=== PATIENT | female | born 1995 | race Caucasian/White ===

== ENCOUNTER → 2016-12-02 | Day surgery (SDC) | payer BC ==
[2016-11-30 11:05] VITALS: Ht 160 cm; Wt 77.3 kg
--- NOTE | 2016-12-01 23:04 | HISTORY & PHYSICAL EXAMINATION ---
DATE OF ADMISSION: 12/02/2016 DIAGNOSIS: Recurrent epistaxis. HISTORY OF PRESENT ILLNESS: This 21-year-old presented with recurrent episodes of epistaxis from the left nostril. PAST MEDICAL HISTORY: Medical problems: None. PREVIOUS SURGERIES: Tonsillectomy. MEDICATIONS: Topamax and Effexor. ALLERGIES: BIAXIN. FAMILY HISTORY: Negative. SOCIAL HISTORY: Negative. REVIEW OF SYSTEMS: Otherwise negative. PHYSICAL EXAMINATION: GENERAL: WNWD female, in no acute distress. HEAD: Normocephalic. EYES: Normal. EARS: Tympanic membranes are intact. NOSE: Nasal passages; swollen turbinates. NECK: Supple. HEART: RRR. LUNGS: Clear. ABDOMEN: Soft. GENITOURINARY: Deferred. EXTREMITIES: Full range of motion. IMPRESSION: Recurrent epistaxis, more so from the left nostril. PLAN: For endoscopic cautery.
[~2016-12-02] VITALS: Ht 160 cm; Wt 77.3 kg
[~2016-12-02] MED LIST: ALBINS/ INH; BACITRACIN OINT 15 GM TUBE ONE; EpINEphrine INJ 1MG/ML AMP 1 MG/ML AMP ONE; GELATIN SPONGE 12-7MM ONE; GELATIN SPONGE SZ 100 ONE; LIDO 2%/EPINEPHRINE 1:100000 20 ML VIAL INFIL ONE; SODIUM CHLORIDE 0.9% 1000ML 1,000 ML IV SCH; TETRACAINE 4% TOPICAL SOLUTION TOP SCH; TOPI100T20 PO; VENL150C56 PO; VNTHFA/IN INH; [UNRECOGNIZED DRUG - CODE]
--- NOTE | 2016-12-02 07:03 | History & Physical Bridge Note ---
H&P Re-Evaluation Bridge Note: I have examined the patient, reviewed the History & Physical and in the interval since the performance of the History & Physical I have noted the following changes of clinical significance: No changes noted
--- NOTE | 2016-12-02 09:00 | Discharge Instructions-SurgCtr ---
Discharge Instructions Date of Service Dec 02, 2016. Visit Reason for Visit: Epistaxis - Not Actively Bleeding Discharge Discharge Diagnosis / Problem: same Discharge Goals Goal(s): Therapeutic intervention Activity Recommendations Activity Limitations: resume your previous activity Anesthesia . Post Anesthesia Instructions: If you have had General Anesthesia or IV Sedation: * Do not drive today. * Resume driving when surgeon permits. * Do not make important decisions or sign legal documents today. * Call surgeon for: 1. Temperature elevations greater than 101 degrees F. 2. Uncontrollable pain. 3. Excessive bleeding. 4. Persistent nausea and vomiting. 5. Medication intolerance (nausea, vomiting or rash). * For nausea and vomiting use only clear liquids such as: tea, soda, bouillon until nausea subsides, then gradually increase diet as tolerated. * If you have any concerns or questions, call your surgeon's office. If physician is unavailable and it is an emergency, call 911 or go to the nearest emergency room. . Instructions / Follow-Up Instructions / Follow-Up ACTIVITY RECOMMENDATIONS: * Being up and around is good, but no strenuous activity, heavy lifting or physical exertion for one week. OVER THE COUNTER MEDICATIONS: * You may use Tylenol * Avoid aspirin or aspirin containing products, e.g. as they may increase bleeding. SPECIAL CARE INSTRUCTIONS: * Expect to have bloody drainage from your nose and/or down your throat for one to three days. Change drip pad as needed. * Begin irrigating your nose with saline solution today, at least six to ten times per day and sniff back to help remove old clots or crust. * You may experience nasal and facial congestion, pain and pressure, this is normal. * Please call with any significant and/or progressive pain, redness, swelling around the eyes, visual changes, fever of 101.5 degrees F, active bleeding or any problems or concerns. * If active bleeding occurs, spray the nose three times at one minute intervals with Afrin spray and call or cell phone: . If unable to reach the doctor, go to the nearest Emergency Department. Special Diet: * Avoid extremely hot fluids. FOLLOW UP VISIT: Follow-up Visit with Dr. Smith If not already scheduled, please call to schedule. Diet Recommendations Home Diet: no limitations Pending Studies Studies pending at discharge: no Medical Emergencies . Who to Call and When: Medical Emergencies: If at any time you feel your situation is an emergency, please call 911 immediately. . Non-Emergent Contact Non-Emergency issues call your: Primary Care Provider . . "Provider Documentation" section prepared by Paola Smith. . [place] Drug Monitoring Program Search Results: no issues identified
[2016-12-02 09:25] VITALS: TEMP 36.5
[2016-12-02 09:51] VITALS: BP 131/95; PULSE 98; O2SAT 99
--- NOTE | 2016-12-02 11:14 | OPERATIVE REPORT ---
DATE OF OPERATION: 12/02/2016 PREOPERATIVE DIAGNOSIS: Recurrent epistaxis. POSTOPERATIVE DIAGNOSIS: Same. PROCEDURE: Endoscopic cautery and anterior nasal packing. SURGEON: Dr. Smith. ANESTHESIA: Strict local. COMPLICATIONS: None. BLOOD LOSS: 2 mL. HISTORY OF PRESENT ILLNESS: A 21-year-old with recurrent episodes of epistaxis failed silver nitrate cautery in the office. PROCEDURE: The patient brought to the operating room and placed in supine position. She was awake. Topical anesthesia was obtained using cottonoids with 4 mL of 4% tetracaine mixed with 1 mL of epinephrine. Injection 2% Xylocaine with 1:100,000 strength epinephrine was also used. Endoscopic cautery was performed using the small suction cautery cauterizing the 3 branches of a rather large vessel on the left side of septum. There was 1 smaller vessel on the right side which was also cauterized using the suction cautery. Anterior nasal packing of Gelfoam was placed. The patient tolerated procedure well and was taken to recovery area in satisfactory condition. I attest to the content of the Intraoperative Record and any orders documented therein. Any exceptio ns are noted below.
== END | disposition home or self-care (01) ==
LOC: X.SURG 07:29
PROVIDERS: ATTEND Otolaryngology
DX: R04.0 Epistaxis (principal)

== ENCOUNTER → 2017-04-25 | Outpatient (CLI) | payer BC ==
[~2017-04-25] MED LIST changes: -BACITRACIN OINT 15 GM TUBE ONE; -EpINEphrine INJ 1MG/ML AMP 1 MG/ML AMP ONE; -GELATIN SPONGE 12-7MM ONE; -GELATIN SPONGE SZ 100 ONE; -LIDO 2%/EPINEPHRINE 1:100000 20 ML VIAL INFIL ONE; -SODIUM CHLORIDE 0.9% 1000ML 1,000 ML IV SCH; -TETRACAINE 4% TOPICAL SOLUTION TOP SCH
--- NOTE | 2017-04-25 10:39 | DIAGNOSTIC IMAGING REPORT ---
PELVIC ULTRASOUND CLINICAL HISTORY: URGE INCONTINENCE COMPARISON STUDY: Pelvic ultrasound July 01, 2016. TECHNIQUE: Transabdominal and transvaginal sonography of the pelvis was performed. FINDINGS: The uterus is sonographically normal, measuring 6.3 x 3.5 x 3.1 cm. Endometrium measures 5 mm in thickness. The right ovary measures 3 x 2.5 x 1.9 cm and the left measures 3.4 x 1.7 x 2.8 cm. Color flow is identified within each ovary. There was no free fluid. IMPRESSION: Normal pelvic ultrasound. Electronically signed by: Bentley Mendez M.D. 04/25/2017 10:38 AM Dictated Date/Time: 04/25/2017 10:37 AM
== END | disposition home or self-care (01) ==
LOC: C.ULTRBC 10:06
PROVIDERS: ATTEND Family Medicine
DX: N39.41 Urge incontinence (principal)

== ENCOUNTER 2017-11-19 06:44 | Emergency (ER) | payer BC, OTHER ==
[~2017-11-19] VITALS: Ht 160 cm; Wt 79.1 kg
[2017-11-19 06:47] VITALS: TEMP 36.4; Ht 160 cm; Wt 79.1 kg
[2017-11-19] MEDS ORDERED: SODIUM CHLORIDE 0.9% 1000ML 2,000 ML IV STA (06:57)
[2017-11-19] MEDS ORDERED: ONDANSETRON INJ 2 MG/ML 2 ML VIAL IV STA ×2 (06:57→08:14)
--- NOTE | 2017-11-19 07:40 | EMERGENCY ROOM VISIT NOTE ---
History Report prepared by Wendy: Hanna Dale Under the Supervision of: Dr. Lorenzo San M.D. First contact with patient: 06:55 Chief Complaint: VOMITING Stated Complaint: VOMITING History of Present Illness The patient is a 22 year old female who presents to the Emergency Room with complaints of persistent vomiting since 0200 this morning. She states she worked last night, then ordered [place] food from [employer] for dinner, and has been "violently vomiting" since 199. She complains of "crampy" abdominal pain. She notes she feels "really hot" currently in the ED. Pt denies LOC, headache, fevers, chills, diaphoresis, visual changes, neck pain, chest pain, breathing difficulties, back pain, melena, hematochezia, urinary symptoms , numbness, weakness, lymphadenopathy, rash, or other complaints. Source of History: patient Onset: 199 this morning Position: abdomen Timing: other (persistent) Modifying Factors (Worsening): eating ([place] food last night) Associated Symptoms: + abdominal pain (crampy) Review of Systems See HPI for pertinent positives and negatives. A total of ten systems were reviewed and were otherwise negative. Past Medical & Surgical Medical Problems: (1) Anxiety (2) ureteral surgery as Surgical Problems: (1) H/O wisdom tooth extraction (2) S/P tonsillectomy Social History Smoking Status: Never Smoker Alcohol Use: none Drug Use: none Marital Status: single Housing Status: lives with family Occupation Status: [employer] student Current/Historical Medications Scheduled Topiramate (Topamax), 100 MG PO HS Venlafaxine Hcl (Effexor Extended Rel), 300 MG PO DAILY AT LUNCH Scheduled PRN Albuterol Hfa (Ventolin Hfa), 2-4 PUFFS INH Q6H PRN for Shortness of Breath Albuterol Sulf (Proventil 0.083% 2.5MG/3ML), 2.5 MG INH QID PRN for Shortness of Breath Miscellaneous Medications Medroxyprogesterone Acetate (C (Depo-Subq Provera 104) Allergies Coded Allergies: Cat Dander (Verified Allergy, Unknown, EYE SWELL, 11/19/17) Clarithromycin (Verified Adverse Reaction, Intermediate, VOMITING, 11/19/17) Physical Exam Vital Signs Date Time Temp Pulse Resp B/P (MAP) Pulse Ox O2 Delivery O2 Flow Rate FiO2 11/19/17 11:45 101 18 118/73 100 11/19/17 10:45 111 20 112/63 100 Room Air 11/19/17 08:46 120 20 141/88 100 Room Air 11/19/17 06:47 36.4 124 18 141/94 94 Room Air Physical Exam GENERAL: Awake, alert, ill appearing, moderate distress HEAD: Normocephalic, atraumatic. No edema. EYES: Normal conjunctiva. Sclera non-icteric. OROPHARYNX: Lips, tongue, and mucosa unremarkable. No erythema or exudate. NECK: Supple. No nuchal rigidity. FROM. No adenopathy. RESPIRATORY: CTA bilaterally. No wheezes rales or rhonchi. Normal respiratory effort. CARDIAC: Borderline tachycardic rate. Normal rhythm. No murmurs. No rubs. GI: Soft, non distended. Mild diffuse tenderness to palpation. No rebound or guarding. MUSCULOSKELETAL: Atraumatic. No edema. NEURO: Normal sensorium. Speech normal. SKIN: No rash or jaundice noted Medical Decision & Procedures Laboratory Results 11/19/17 07:30 Red Blood Count 4.67, Mean Corpuscular Volume 86.3, Mean Corpuscular Hemoglobin 30.2, Mean Corpuscular Hemoglobin Concent 35.0, Mean Platelet Volume 9.7, Neutrophils (%) (Auto) 88.2, Lymphocytes (%) (Auto) 4.5, Monocytes (%) (Auto) 6.9, Eosinophils (%) (Auto) 0.1, Basophils (%) (Auto) 0.0, Neutrophils # (Auto) 5.92, Lymphocytes # (Auto) 0.30, Monocytes # (Auto) 0.46, Eosinophils # (Auto) 0.01, Basophils # (Auto) 0.00 11/19/17 07:10 Test 11/19/17 07:10 11/19/17 07:30 11/19/17 09:35 Anion Gap 12.0 mmol/L (3-11) Est Creatinine Clear Calc Drug Dose 114.1 ml/min Estimated GFR () 127.0 Estimated GFR (Non- 109.6 BUN/Creatinine Ratio 24.4 (10-20) Calcium Level 8.9 mg/dl (8.5-10.1) Total Bilirubin 0.6 mg/dl (0.2-1) Direct Bilirubin < 0.1 mg/dl (0-0.2) Aspartate Amino Transf (AST/SGOT) 17 U/L (15-37) Alanine Aminotransferase (ALT/SGPT) 22 U/L (12-78) Alkaline Phosphatase 78 U/L (45-117) Total Protein 7.6 gm/dl (6.4-8.2) Albumin 3.8 gm/dl (3.4-5.0) Lipase 131 U/L (73-393) White Blood Count 6.71 K/uL (4.8-10.8) Red Blood Count 4.67 M/uL (4.2-5.4) Hemoglobin 14.1 g/dL (12.0-16.0) Hematocrit 40.3 % (37-47) Mean Corpuscular Volume 86.3 fL (80-100) Mean Corpuscular Hemoglobin 30.2 pg (25-34) Mean Corpuscular Hemoglobin Concent 35.0 g/dl (32-36) Platelet Count 197 K/uL (130-400) Mean Platelet Volume 9.7 fL (7.4-10.4) Neutrophils (%) (Auto) 88.2 % Lymphocytes (%) (Auto) 4.5 % Monocytes (%) (Auto) 6.9 % Eosinophils (%) (Auto) 0.1 % Basophils (%) (Auto) 0.0 % Neutrophils # (Auto) 5.92 K/uL (1.4-6.5) Lymphocytes # (Auto) 0.30 K/uL (1.2-3.4) Monocytes # (Auto) 0.46 K/uL (0.11-0.59) Eosinophils # (Auto) 0.01 K/uL (0-0.5) Basophils # (Auto) 0.00 K/uL (0-0.2) RDW Standard Deviation 39.5 fL (36.4-46.3) RDW Coefficient of Variation 12.5 % (11.5-14.5) Immature Granulocyte % (Auto) 0.3 % Immature Granulocyte # (Auto) 0.02 K/uL (0.00-0.02) Human Chorionic Gonadotropin, Qual NEG (NEG) Urine Color YELLOW Urine Appearance CLEAR (CLEAR) Urine pH 5.0 (4.5-7.5) Urine Specific Wisner 1.018 (1.000-1.030) Urine Protein NEG (NEG) Urine Glucose (UA) NEG (NEG) Urine Ketones NEG (NEG) Urine Occult Blood NEG (NEG) Urine Nitrite NEG (NEG) Urine Bilirubin NEG (NEG) Urine Urobilinogen NEG (NEG) Urine Leukocyte Esterase NEG (NEG) Laboratory results reviewed by me Medications Administered Medications (Trade) Dose Ordered Sig/Angelina Route Start Time Stop Time Status Last Admin Dose Admin Sodium Chloride 2,000 ml @ 999 mls/hr Q2H1M STAT IV 11/19/17 06:57 11/19/17 08:57 DC 11/19/17 07:16 999 MLS/HR Ondansetron HCl (Zofran Inj) 4 mg NOW STAT IV 11/19/17 06:57 11/19/17 06:59 DC 11/19/17 07:17 4 MG Ondansetron HCl (Zofran Inj) 4 mg NOW STAT IV 11/19/17 08:14 11/19/17 08:15 DC 11/19/17 08:30 4 MG Promethazine HCl 25 mg/Sodium Chloride 51 ml @ 204 mls/hr NOW STAT IV 11/19/17 10:16 11/19/17 10:30 DC 11/19/17 10:37 204 MLS/HR Promethazine HCl (Phenergan 25MG Home Pack) 1 homepack UD ONCE PO 11/19/17 11:30 11/19/17 11:31 DC 11/19/17 11:41 1 HOMEPACK ED Course 0657: The patient was evaluated in room B2. A complete history and physical exam was performed. 0657: NSS 2000 ml @ 999 mls/hr IV, Zofran 4 mg IV. 0805: I reevaluated the patient. She is still nauseous so I will order another dose of Zofran. 0814: Zofran 4 mg IV. 1010: I reevaluated the patient. She got nauseated after oral challenge. 1016: Promethazine HCl 25 mg/NSS 51 ml @ 204 mls/hr IV. 1055: I reevaluated the patient. She is feeling well and resting comfortably. I discussed her results and discharge instructions and she verbalized complete understanding and agreement. Medical Decision Prior records/ancillary studies reviewed. Triage Nursing notes reviewed and agree them. Additional history obtained from the family. The patient's history was concerning for nausea, vomiting, diarrhea, and abdominal pain. Differential diagnosis: Etiologies such as gastroenteritis, food borne illness, infections, appendicitis , diverticulitis, inflammatory bowel disease, GI bleed, biliary pathology, as well as others were entertained. Physical examination findings: As above. No focal abdominal findings. No peritoneal findings. ER treatment provided: IV hydration 2 L NSS. Zofran 4 mg IV 2 On reassessment the patient felt better. Patient was tolerating p.o. intake. She did have more nausea and was given a dose of Phenergan She was reassessed and was doing much better. Repeat abdominal examination was benign. Conservative management discussed. Patient feels comfortable. Diagnostics interpretation by me: The labs revealed an unremarkable CBC and chemistry panel. Urinalysis negative. She is not . Imaging studies: Deferred I suspect a vomiting illness such as gastritis or gastroenteritis. She has not had any diarrhea yet but her symptoms are short in onset. They have resolved with the above treatment. She has a benign abdomen. By the evaluation outlined above emergent etiologies such as appendicitis, diverticulitis, mesenteric ischemia, aortic pathology, inflammatory bowel disease, renal colic, PUD, biliary pathology, UTI, as well as others were deemed relatively unlikely. The patient was informed about the findings as listed above. All questions were answered and she was pleased with the treatment. Return instructions were outlined and the patient was discharged in stable condition. Outpatient prescription management: Phenergan home pack Referral: The patient was referred to her primary care physician for follow-up in 2 to 3 days for a recheck of the current condition. Medication Reconcilliation Current Medication List: was personally reviewed by me Blood Pressure Screening Patient's blood pressure: Elevated blood pressure Blood pressure disposition: Elevated BP felt to be situational Impression Primary Impression: Nausea and vomiting Scribe Attestation The scribe's documentation has been prepared under my direction and personally reviewed by me in its entirety. I confirm that the note above accurately reflects all work, treatment, procedures, and medical decision making performed by me. Departure Information Dispostion Home / Self-Care Referrals Emi Greco DO (PCP) Patient Instructions My [facility] Additional Instructions VOMITING INSTRUCTIONS: Phenergan 25mg tabs, one every six hours for nausea. Do not drive if taking Ibuprofen(Motrin, Advil) may be used for fever or pain. Use 600mg every six hours as needed. Take with food. Avoid using more than 2400mg in a 24 hour period. Do not use 2400mg per day for more than three consecutive days without physician direction. Prolonged inappropriate use can lead to stomach upset or ulcers. (AND/OR) Acetaminophen(Tylenol) may be used for fever or pain. Use 1000mg every six hours as needed. Avoid using more than 4000mg in a 24 hour period. Rest and drink plenty of fluids as tolerated. Slow sips of water or sports drinks are recommended instead of large amounts all at once. Continue current medications. Once your stomach is settled start with a clear liquid diet (jello, soup broth, etc.) and then advance as tolerated. You should avoid full, heavy meals for about 24 hrs from the time your symptoms resolved. Return to the ER for persistent vomiting, fevers, abdominal pain, chest pains, difficulty breathing, black or bloody stools, worsening of your condition, or as needed. Follow up with your primary physician in 2-3 days for a recheck of your current condition
[2017-11-19 07:50] LABS: EOS % 0.1 %; EOS ABS # 0.01 K/uL (0-0.5); HEMATOCRIT 40.3 % (37-47); HEMOGLOBIN 14.1 g/dL (12.0-16.0); IG# 0.02 K/uL (0.00-0.02); LYMPH % 4.5 %; MEAN CELL VOLUME 86.3 fL (80-100); MEAN CORPUSCULAR HEMOGLOBIN 30.2 pg (25-34); MEAN PLATELET VOLUME 9.7 fL (7.4-10.4); MONO % 6.9 %; MONO ABS # 0.46 K/uL (0.11-0.59); NEUT % 88.2 %; NEUT ABS # 5.92 K/uL (1.4-6.5); PLATELET COUNT 197 K/uL (130-400); RED CELL DISTRIBUTION WIDTH CV 12.5 % (11.5-14.5); RED CELL DISTRIBUTION WIDTH SD 39.5 fL (36.4-46.3); WHITE BLOOD COUNT 6.71 K/uL (4.8-10.8)
[2017-11-19 07:52] LABS: ALBUMIN 3.8 gm/dl (3.4-5.0); ALKALINE PHOSPHATASE 78 U/L (45-117); ALT/SGPT 22 U/L (12-78); BLOOD UREA NITROGEN 19 mg/dl (7-18); CALCIUM 8.9 mg/dl (8.5-10.1); CARBON DIOXIDE 19 mmol/L (21-32); CREATININE 0.77 mg/dl (0.60-1.20); GLUCOSE 145 mg/dl (70-99); LIPASE 131 U/L (73-393); TOTAL PROTEIN 7.6 gm/dl (6.4-8.2)
[2017-11-19 08:01] LABS: POTASSIUM 3.9 mmol/L (3.5-5.1); SODIUM 140 mmol/L (136-145)
[2017-11-19 08:06] LABS: AST/SGOT 17 U/L (15-37)
[2017-11-19] MEDS ORDERED: PROMETHAZINE HCL INJ 25 MG in SODIUM CHLORIDE 0.9% 50ML 50 ML IV STA (10:16)
[2017-11-19] MEDS ORDERED: PHENERGAN 25MG HOMEPACK PO ONE (11:30)
[2017-11-19 11:45] VITALS: BP 118/73; PULSE 101; O2SAT 100
== END 2017-11-19 11:46 | disposition home or self-care (01) ==
LOC: C.EDB 06:45
DX: R11.2 Nausea with vomiting, unspecified (principal); R10.84 Generalized abdominal pain; R03.0 Elevated blood-pressure reading, without diagnosis of hypertension; F41.9 Anxiety disorder, unspecified; Z91.048 Other nonmedicinal substance allergy status; Z88.1 Allergy status to other antibiotic agents

== ENCOUNTER → 2017-12-20 | Outpatient (CLI) | payer OTHER | END | disposition home or self-care (01) | LOC: C.PAPS 12:03 | PROVIDERS: ATTEND Family Medicine | DX: Z12.4 Encounter for screening for malignant neoplasm of cervix (principal); Z11.51 Encounter for screening for human papillomavirus (HPV); R87.612 Low grade squamous intraepithelial lesion on cytologic smear of cervix (LGSIL) ==

== ENCOUNTER → 2017-12-20 | Outpatient (CLI) | payer OTHER | END | disposition home or self-care (01) | LOC: C.LABSPEC 11:14 | PROVIDERS: ATTEND Family Medicine | DX: Z11.3 Encounter for screening for infections with a predominantly sexual mode of transmission (principal); Z11.8 Encounter for screening for other infectious and parasitic diseases ==